=== PATIENT | male | born 1995 | race Two or more races ===

== ENCOUNTER 2021-02-13 08:28 | Emergency (ER) | payer OTHER ==
[~2021-02-13] VITALS: Ht 180.3 cm; Wt 79.4 kg
[2021-02-13] MEDS ORDERED: ZITHROMAX500 MG PO (12:50)
== END 2021-02-13 14:12 | disposition home or self-care (01) ==
LOC: ER 08:28
DX: B34.9 Viral infection, unspecified (principal); B96.0 Mycoplasma pneumoniae [M. pneumoniae] as the cause of diseases classified elsewhere; Z11.52 Encounter for screening for COVID-19